=== PATIENT | female | born 1970 | race Two or more races ===

== ENCOUNTER 2024-11-15 06:00 | Inpatient (IN) | payer OTHER ==
[2024-11-14 10:41] VITALS: BP 129/84
[~2024-11-15] VITALS: Ht 175.3 cm; Wt 104.3 kg
[~2024-11-15 06:00] MED LIST: ANASTROZOLE1 MG; BUPIVACAINE HCL/MPF 0.5% 30ML VIAL ONE; CEFAZOLIN SODIUM 1,000 MG VIAL ONE; GENTAMICIN SULFATE 40 MG/ML VIAL ONE; LOSARTAN-HCTZ1 EAC2; POVIDONE-IODINE 118 ML BOTT TOP ONE; POVIDONE-IODINE SCRUB 118 ML BOTT TOP ONE
[2024-11-15] MEDS ORDERED: POVIDONE-IODINE 118 ML BOTT TOP ONE ×6 (07:22→10:15)
[2024-11-15] MEDS ORDERED: POVIDONE-IODINE SCRUB 118 ML BOTT TOP ONE (07:22)
[2024-11-15] MEDS ORDERED: BUPIVACAINE HCL/MPF 0.5% 30ML VIAL ONE (07:22)
[2024-11-15] MEDS ORDERED: EPINEPHRINE HCL/PF 1 MG/ML AMPUL ONE (07:22)
[2024-11-15] MEDS ORDERED: GENTAMICIN SULFATE 40 MG/ML VIAL ONE (07:22)
[2024-11-15] MEDS ORDERED: TRANEXAMIC ACID 100MG/1ML (1000MG) AMPUL ONE (07:23)
[2024-11-15] MEDS ORDERED: CEFAZOLIN SODIUM 1,000 MG VIAL ONE (07:23)
[2024-11-15] MEDS ORDERED: CLINDAMYCIN PHOSPHATE 150 MG/ML (900mg) ONE (07:59)
[2024-11-15] MEDS ORDERED: TRANEXAMIC ACID 100MG/1ML (1000MG) AMPUL IV ONE ×2 (10:00→12:15)
[2024-11-15] MEDS ORDERED: POVIDONE-IODINE 0.75 OZ PACKET TOP ONE (10:00)
[2024-11-15] MEDS ORDERED: ONDANSETRON HCL 2 MG/ML VIAL IV PRN (11:00)
[2024-11-15] MEDS ORDERED: 0.9 % SODIUM CHLORIDE 1,000 ML IV SCH (11:00)
[2024-11-15] MEDS ORDERED: MORPHINE SULFATE 2 MG/ML SYRINGE IV SCH (11:00)
[2024-11-15] MEDS ORDERED: SUGAMMADEX SODIUM 200 MG/2 ML VIAL IV ONE (11:11)
[2024-11-15] MEDS ORDERED: CIPROFLOXACIN IN 5 % DEXTROSE 400 MG/200 ML PIGGYBAG IV SCH (21:00)
[2024-11-16 01:23] VITALS: BP 120/79; O2SAT 96
[2024-11-16 08:00] VITALS: BP 132/71; O2SAT 95
== END 2024-11-16 13:56 | disposition home or self-care (01) | DRG 578 ==
LOC: CIR.AMB 06:00 → EDBD 15:00 → SURH 18:33
PROVIDERS: Plastic Surgery; ADMIT Surgery; ATTEND Surgery
PROC: C71L1ZZ Planar Nuclear Medicine Imaging of Upper Chest Lymphatics using Technetium 99m (Tc-99m) (ICD-10-PCS; 2024-11-14)
PROC: 0HBV0ZZ Excision of Bilateral Breast, Open Approach (ICD-10-PCS; 2024-11-15)
PROC: 0HHV0NZ Insertion of Tissue Expander into Bilateral Breast, Open Approach (ICD-10-PCS; 2024-11-15)
PROC: 0HPT0JZ Removal of Synthetic Substitute from Right Breast, Open Approach (ICD-10-PCS; 2024-11-15)
PROC: 0KXL0Z6 Transfer Left Abdomen Muscle, Transverse Rectus Abdominis Myocutaneous Flap, Open Approach (ICD-10-PCS; 2024-11-15)
PROC: 0KXK0Z6 Transfer Right Abdomen Muscle, Transverse Rectus Abdominis Myocutaneous Flap, Open Approach (ICD-10-PCS; 2024-11-15)
PROC: 0HR7XK3 Replacement of Abdomen Skin with Nonautologous Tissue Substitute, Full Thickness, External Approach (ICD-10-PCS; principal; 2024-11-15 10:15)
PROC: 07B60ZZ Excision of Left Axillary Lymphatic, Open Approach (ICD-10-PCS; 2024-11-15 10:15)
DX: D05.02 Lobular carcinoma in situ of left breast (principal); Z80.3 Family history of malignant neoplasm of breast; D24.1 Benign neoplasm of right breast; Z90.13 Acquired absence of bilateral breasts and nipples; N65.1 Disproportion of reconstructed breast